=== PATIENT | male | born 2000 | race Caucasian/White ===

== ENCOUNTER 2022-06-02 09:43 | Emergency (ER) | payer OTHER, SELFPAY ==
[2022-06-02 10:09] VITALS: BP 110/72; PULSE 65; RESP 20; TEMP 36.8; O2SAT 100
[2022-06-02 10:10] LABS: Glucose Point of Care 96 mg/dl (65-105)
[2022-06-02 10:43] LABS: Hemoglobin A1C 5.5 % (<5.7)
--- NOTE | 2022-06-02 11:36 | ED.RECABL ---
HPI - Recheck/Abnormal Lab/Rx General Chief Complaint: Recheck/Abnormal Lab/Rx Stated Complaint: ?DM Time Seen by Provider: 06/02/22 11:21 History of Present Illness HPI narrative: Patient is a 21-year-old male here for evaluation of multiple nonspecific complaints. Patient states that he was feeling unwell today and his girlfriend emergently bought a ketone test strips and noted that he had ketones in his urine. Patient states that he knows that he is in diabetic ketoacidosis although he denies any history of diabetes. Presents today for those issues. States that he tastes acid on his tongue and has a history of acid reflux. Denies abdominal pain, nausea or vomiting. He does not have a primary care doctor. Related Data Allergies Allergy/AdvReac Type Severity Reaction Status Date / Time No Known Allergies Allergy Verified 06/02/22 11:24 Review of Systems Review of Systems: Gen.: Denies fevers or chills Eyes: Denies eye pain or visual change ENT: Denies congestion Respiratory: Denies shortness of breath or cough CV: Denies chest pain or palpitations GI: Denies abdominal pain nausea, emesis or diarrhea denies burning, urgency, frequency or hematuria Musculoskeletal: Denies back pain or muscle pain Neuro: Denies numbness, tingling, weakness or focal weakness Skin: Denies rash Except as documented, all other systems reviewed and negative Exam Narrative: APPEARANCE: Disheveled appearing Head: Normocephalic and atraumatic. EYES: PERRLA/EOMI, conjunctivae clear NOSE: No nasal drainage EARS: External ear normal in appearance THROAT: Oropharynx is clear. Mucous membranes are moist. NECK: Supple. No adenopathy, no masses. RESPIRATORY: Airway patent, respirations nonlabored. Clear to auscultation bilaterally, no rales, rhonchi, wheezing. CARDIOVASCULAR: Regular rate and rhythm without murmurs, rubs, or gallops. ABDOMINAL: Normoactive bowel sounds. Soft, nontender, nondistended. No rebound tenderness or guarding. MUSCULOSKELETAL: Extremities are warm and well-perfused. Moves all extremities well. No edema. NEURO: Normal speech. No focal neurologic deficits. SKIN: Skin is warm and dry. No rashes. PSYCHIATRIC: Flat affect Course Vital Signs Vital signs: Vital Signs Temperature 98.2 F 06/02/22 10:09 Pulse Rate 65 12/27/22 10:09 Respiratory Rate 20 06/02/22 10:09 Blood Pressure 110/72 06/02/22 10:09 Pulse Oximetry 100 06/02/22 10:09 Oxygen Delivery Room Air 06/02/22 10:09 Temperature 98.2 F 06/02/22 10:09 Pulse Rate 65 06/02/22 10:09 Respiratory Rate 20 06/02/22 10:09 Blood Pressure 110/72 06/02/22 10:09 Pulse Oximetry 100 06/02/22 10:09 Oxygen Delivery Room Air 06/02/22 10:09 MDM - Recheck/Abnormal Lab/Rx MDM Narrative Medical decision making narrative: 21-year-old male here for evaluation of symptoms of ketones in the urine and blood sugars of 110 at home after eating. Patient is nontoxic-appearing and has normal vital signs. His POC glucose is 96 and his A1c is 5.5. Not consistent with DKA. Ketonuria likely due to dehydration. Encouraged him to increase his fluid intake over the next several days and follow-up with a primary care doctor for remainder of complaints. Lab Data Labs: Lab Results 06/02/22 06/02/22 Range/Units 10:08 10:25 POC Capillary Glucose 96 (65-105) mg/dl Hemoglobin A1c 5.5 (<5.7) % Discharge Plan Discharge Clinical Impression: Physically well but worried Patient Disposition: Home, Self-Care Condition: Stable Instructions: Antibiotic Form, Normal Exam (ED) Additional Instructions: Your blood sugar is normal today. You have no evidence of diabetes. Please follow-up with the primary care doctor for further evaluation and management of your symptoms. Follow-up/Referrals: PHYSICIAN,PRODUCT AMBASSADOR [Primary Care Provider] - Oscar Villalobos MD [Physician] - 1 Week
[2022-06-02 12:03] VITALS: BP 114/81; PULSE 61; RESP 15; O2SAT 100
== END 2022-06-02 12:04 | disposition home or self-care (01) ==
PROVIDERS: Family Medicine; Emergency Provider Physician Assistant
DX: Z03.89 Encounter for observation for other suspected diseases and conditions ruled out (principal)
CPT/HCPCS: 36415; 82948; 83036; 99283

== ENCOUNTER 2022-06-10 12:21 | Emergency (ER) | payer SELFPAY ==
--- NOTE | ~2022-06-10 | XR_ITS ---
Left ankle Technique: AP, oblique, and lateral views were obtained. Clinical History: Pain Findings: No acute fracture or dislocation is seen. Osseous alignment is anatomic. Ankle mortise and other visualized joint spaces are preserved. Soft tissues are otherwise unremarkable. Impression: Unremarkable left ankle. Reviewed, dictated and finalized at location . WORKER Impression: Unremarkable left ankle.
[2022-06-10 12:22] VITALS: BP 124/78; PULSE 109; RESP 18; TEMP 36.5; O2SAT 98
--- NOTE | 2022-06-10 13:15 | ED.LOWEXIN ---
HPI - Extremity Injury (Lower) General Chief Complaint: Extremity Injury, Lower Stated Complaint: left ankle injury Time Seen by Provider: 06/10/22 13:04 Source: patient Mode of arrival: wheelchair Limitations: no limitations History of Present Illness HPI Narrative: This is a 21-year-old male that presents to the emergency department for left ankle pain after an injury today. Reports he was running across the road and tripped and rolled his left ankle. Reports swelling and pain over the lateral malleolar line. Reports decreased range of motion due to pain. Denies hitting his head or loss of consciousness, other injuries, or numbness. Related Data Home Medications Medication Instructions Recorded Confirmed No Home Medications 06/10/22 Allergies Allergy/AdvReac Type Severity Reaction Status Date / Time No Known Allergies Allergy Verified 06/10/22 12:24 Review of Systems Review of Systems: CONSTITUTIONAL: Denies fever MUSCULOSKELETAL: Reports joint pain, and myalgia. NEUROLOGIC: Denies numbness, or weakness. All systems reviewed & are unremarkable except as noted in HPI and below PMFSH Past Medical History Medical History (Updated 06/10/22 @ 13:25 by Ele Tan PA-C) No active medical problems Social History Social History (Updated 06/10/22 @ 13:19 by Ele Tan PA-C) Substance use: current Substance use type: marijuana Exam Narrative: GENERAL: Well-appearing, well-nourished, and in no acute distress. HEAD: Normocephalic, atraumatic. EYES: EOMI. EXTREMITIES: Mild decreased active ROM in the left ankle due to pain. Mild edema about the left lateral malleoli. Normal DP pulse. Normal sensation. Achilles tendon is intact SKIN: Warm, dry, no rash. NEURO: No focal deficits. Alert and oriented x3. PSYCH: Normal mood and affect Course Course Emergency Course: Patient updated on work-up and plan of care Vital Signs Vital signs: Vital Signs Temperature 97.7 F 06/10/22 12:22 Pulse Rate 109 H 06/10/22 12:22 Respiratory Rate 18 06/10/22 12:22 Blood Pressure 124/78 06/10/22 12:22 Pulse Oximetry 98 06/10/22 12:22 Oxygen Delivery Room Air 06/10/22 12:22 Temperature 97.7 F 06/10/22 12:22 Pulse Rate 109 H 06/10/22 12:22 Respiratory Rate 18 06/10/22 12:22 Blood Pressure 124/78 06/10/22 12:22 Pulse Oximetry 98 06/10/22 12:22 Oxygen Delivery Room Air 06/10/22 12:22 MDM - Extremity Injury (Lower) MDM Narrative Medical decision making narrative: Patient presents to the ER for left ankle pain after an injury today. Patient is neurovascularly intact. Left ankle x-ray without acute osseous abnormalities. He was instructed on care of ankle sprain. He is to follow-up with primary care doctor. He was given warnings to return to the ER Differential Diagnosis Differential diagnosis: Likely ankle sprain and strain and ankle fracture Imaging Data Radiologist's impression: ITS Impressions Ankle X-Ray 06/10/22 12:43 Impression: Unremarkable left ankle. Critical Care Time Critical Care Time Critical Care Time: No Discharge Plan Discharge Clinical Impression: Ankle sprain and strain Patient Disposition: Home, Self-Care Condition: Stable Instructions: Ankle Sprain (ED) Additional Instructions: Return to the emergency department if you experience fever, redness and swelling of your leg, numbness, or any other symptoms that are concerning Wear AMELIA wrap and use crutches. No weight on the affected leg until able to bear weight without pain. Ice and elevate extremity. Pain medication as needed and directed. Follow up with primary care doctor for further care. Prescriptions: No Action No Home Medications Follow-up/Referrals: Vel West MD [Physician] - 1 Week PHYSICIAN,CONTROL CHEMIST [Primary Care Provider] -
== END 2022-06-10 13:30 | disposition home or self-care (01) ==
LOC: ANHED 13:40
PROVIDERS: Emergency Provider Physician Assistant
DX: S93.402A Sprain of unspecified ligament of left ankle, initial encounter (principal); S96.912A Strain of unspecified muscle and tendon at ankle and foot level, left foot, initial encounter; W18.40XA Slipping, tripping and stumbling without falling, unspecified, initial encounter; X50.9XXA Other and unspecified overexertion or strenuous movements or postures, initial encounter
CPT/HCPCS: 73610; 99283

== ENCOUNTER 2022-12-09 12:36 | Emergency (ER) | payer OTHER, SELFPAY ==
--- NOTE | ~2022-12-09 | XR_ITS ---
Right Knee Technique: AP and lateral views were obtained. Clinical History: Pain Findings: No fracture or dislocation is seen. Osseous alignment is anatomic. Joint spaces are preserv ed without degenerative or erosive change. Soft tissues are unremarkable. No joint effusion is seen. Impression: Unremarkable right knee radiographs. Reviewed, dictated and finalized at location . Impression: Unremarkable right knee radiographs.
[2022-12-09 12:55] VITALS: BP 113/67; PULSE 56; RESP 18; TEMP 36.2; O2SAT 99
--- NOTE | 2022-12-09 14:18 | ED.LOWEXIN ---
HPI - Extremity Injury (Lower) General Chief Complaint: Extremity Injury, Lower Stated Complaint: right knee pain Time Seen by Provider: 12/09/22 13:46 History of Present Illness HPI Narrative: Patient is a 22-year-old male who presents ER with right knee injury. He was moving some pizza dough when the container slipped and fell down striking on the right knee. He felt his patella dislocate and then relocate. He has pain along the knee medially. He has pain with ambulation. No numbness or tingling. No additional injury. Related Data Allergies Allergy/AdvReac Type Severity Reaction Status Date / Time No Known Allergies Allergy Verified 12/09/22 12:37 Review of Systems Respiratory: Respiratory: Denies cough and Denies dyspnea Gastrointestinal: Gastrointestinal: Denies abdominal pain, Denies nausea and Denies vomiting Musculoskeletal: Musculoskeletal: Reports arthralgias and Reports joint swelling Neurologic: Denies focal weakness and Denies numbness PMFSH Past Medical History Medical History (Updated 12/09/22 @ 14:22 by Efrain Callejas MD) No active medical problems Surgical History Surgical History (Updated 12/09/22 @ 14:20 by Efrain Callejas MD) History of knee surgery Social History Social History (Updated 06/10/22 @ 13:19 by Ele Tan PA-C) Substance use: current Substance use type: marijuana Exam Narrative: GENERAL: Well-appearing, well-nourished, and in no acute distress. HEAD: Normocephalic, atraumatic. EYES: PERRL and EOMI. ENT: Mucous membranes moist. CHEST: Clear to auscultation. No respiratory distress. HEART: Regular rate and rhythm. Normal peripheral pulses. EXTREMITIES: Right knee with normal flexion and extension as well as no ligamentous instability. There is tenderness medial to the patella with slight effusion. With knee flexion extension there is clicking of the patella. SKIN: Warm, dry, no rash. NEURO: Alert and oriented x3. PSYCH: Normal mood and affect. Course Course Emergency Course: Patient be placed in knee immobilizer for comfort and given crutches. Discussed RICE therapy. Will refer to orthopedic surgery. Vital Signs Vital signs: Vital Signs Temperature 97.1 F L 12/09/22 12:55 Pulse Rate 56 L 12/09/22 12:55 Respiratory Rate 18 12/09/22 12:55 Blood Pressure 113/67 12/09/22 12:55 Pulse Oximetry 99 12/09/22 12:55 Oxygen Delivery Room Air 12/09/22 12:55 Temperature 97.1 F L 12/09/22 12:55 Pulse Rate 56 L 12/09/22 12:55 Respiratory Rate 18 12/09/22 12:55 Blood Pressure 113/67 12/09/22 12:55 Pulse Oximetry 99 12/09/22 12:55 Oxygen Delivery Room Air 12/09/22 12:55 MDM - Extremity Injury (Lower) Imaging Data Radiologist's impression: ITS Impressions Knee X-Ray 12/09/22 13:30 Impression: Unremarkable right knee radiographs. Discharge Plan Discharge Clinical Impression: Knee sprain, Patellar subluxation Patient Disposition: Home, Self-Care Condition: Stable Instructions: Knee Sprain (ED), P.R.I.C.E. Treatment (ED), Knee Immobilizer (ED) Additional Instructions: Return the ER if you suffer new injury, you have new numbness or weakness to lower extremity, or you have additional concerns. Make sure to elevate your leg to decrease swelling and take anti-inflammatory medication. Prescriptions: New naproxen 375 mg tablet 375 mg PO BID Qty: 14 0RF Follow-up/Referrals: PHYSICIAN,REPAIR CLERK [Primary Care Provider] - Humphrey Gu MD [Physician] - 1 Week
== END 2022-12-09 15:00 | disposition home or self-care (01) ==
LOC: ANHED 14:43
PROVIDERS: Emergency Provider Emergency Medicine
DX: S83.91XA Sprain of unspecified site of right knee, initial encounter (principal); S83.004A Unspecified dislocation of right patella, initial encounter
CPT/HCPCS: 73560; 99283